=== PATIENT | female | born 2000 | race Caucasian/White ===

== ENCOUNTER 2025-02-15 10:05 | Outpatient (AMB) | payer OTHER, SELFPAY ==
--- NOTE | 2025-02-15 10:11 | MHC.OFFVIS ---
Vital Signs 02/15/25 10:20 Height 5 ft 9 in Weight 141 lb 1.533 oz BMI 20.8 BP 115/67 Blood Pressure Location Lt brachial Position Sitting Pulse 64 Intake Visit Reasons: Hepatitis C Intake Note: Angie presents in the office as a new patient for Hep C. CC: states that she got diagnosed with type 1 diabetes a month ago. She has no symptoms of Hep C but states she had poc antibodies. Allergies methimazole Allergy (Mild, Verified 02/15/25 10:21) Unknown HPI Comments Details: 25 y.o F who is here for positive HCV negative viral load . Pt reports had routine labs which showed HCV Ab positive. However based on referral sent viral load is negative. Pt herself does not have any abd pain, N,V,D. Hx of unprotected sexual intercourse. No hx of IVDU. No fam hx of liver disease or HCV that pt is aware of. Pt has hx of jaundice when she was 10 y.o which was attributed to DILI with methimazole given for graves disease. PMH: iatrogenic hyPOthyroidism, T1DM. PFSH Surgical History (Updated 02/15/25 @ 10:21 by VIRGILIO Waters) Hx of colonoscopy History of esophagogastroduodenoscopy (EGD) Family History (Updated 02/15/25 @ 10:22 by VIRGILIO Waters) Paternal Uncle Colon cancer Review of Systems Const All systems reviewed & are unremarkable except as noted in HPI and below Physical Exam Vital Signs: Last Vital Signs Pulse 64 02/15/25 10:20 BP 115/67 02/15/25 10:20 BMI result Body Mass Index 20.8 No apparent distress Nonicteric Abdomen soft, nondistended Alert and oriented x3, normal gait Assessment & Plan Assessment & Plan (1) Hepatitis C antibody detected: Code(s): R76.8 - Other specified abnormal immunological findings in serum Category: Medical Plan Unclear exposure hx possible sexually transmitted. ?? Hx of jaundice when she was 10 y.o. Based on referral this is resolved but will get labs to confirm. Will also check HBV and HIV to r/o coinfection. Plan: - Labs as below - If no active infection, PRN follow up. Orders: Orders Hepatitis A IgG Today R76.8 - Other specified abnormal immunological findings in serum Hepatitis B Core Antibody Today R76.8 - Other specified abnormal immunological findings in serum Hepatitis C Antibody Today R76.8 - Other specified abnormal immunological findings in serum Liver Panel Today R76.8 - Other specified abnormal immunological findings in serum Hepatitis B Surface Antibody Today R76.8 - Other specified abnormal immunological findings in serum Hepatitis B Surface Antigen Today R76.8 - Other specified abnormal immunological findings in serum HCV RNA QN PROG TO GENOTYPE Today R76.8 - Other specified abnormal immunological findings in serum HIV Ab/Ag Today R76.8 - Other specified abnormal immunological findings in serum Coding Level of Care Code New Pt Level 3 (88247) Diagnoses Hepatitis C antibody detected R76.8
[2025-02-15 10:20] VITALS: BP 115/67; PULSE 64; BMI 20.8
== END 2025-02-15 10:57 | disposition home or self-care (01) ==
LOC: HO.HGI 10:06
PROVIDERS: PCP Internal Medicine; Visit Provider Internal Medicine
DX: R76.8 Other specified abnormal immunological findings in serum (principal)
CPT/HCPCS: 99203

== ENCOUNTER 2025-02-15 10:05 | Outpatient (REF) | payer OTHER, SELFPAY ==
[2025-02-15 12:40] LABS: Alanine Aminotransferase 42 U/L (0-31); Albumin Level 4.2 g/dL (3.5-5.0); Alkaline Phosphatase 76 U/L (39-117); Aspartate Amino Transferase 29 U/L (5-31); Bilirubin Direct 0.1 mg/dL (0.0-0.5); Bilirubin Total 0.4 mg/dL (0.0-1.0); Total Protein 7.6 g/dL (6.5-8.0)
[2025-02-15 12:58] LABS: HBS Num1 0.65 mIU/mL (0-7.99); HBc Num1 0.17 S/CO (0.00-0.79); HBsAGNum1 0.27 S/CO (0.00-0.99); HIV AB/AG Nonreactive (Nonreactive); HIV Num 1 0.11 S/CO (0.00-0.99); Hepatitis B Core Antibody Nonreactive (Nonreactive); Hepatitis B Surface Antigen Negative (Negative); ~HepC Num1 0.17 S/CO (0.00-0.79); ~Hepatitis B Surface Antibody NONREACTIVE (Nonreactive); ~Hepatitis C Antibody Nonreactive (Nonreactive)
[2025-02-17 04:09] LABS: Hepatitis A Antibody IgG REACTIVE (Nonreactive); ~Hepatitis A Antibody IgG 5.69 S/CO (0.00-0.99)
[2025-02-17 18:07] LABS: HCV RNA PCR Qn <1.18 NOT DETECTED Log IU/mL (NOT DETECTED); HCV RNA PCR Qn <15 NOT DETECTED IU/mL (NOT DETECTED)
== END 2025-02-15 10:06 | disposition home or self-care (01) ==
LOC: HO.LAB 10:05
PROVIDERS: PCP Internal Medicine; Visit Provider Internal Medicine
DX: R76.8 Other specified abnormal immunological findings in serum (principal)
CPT/HCPCS: 36415; 80076; 86704; 86706; 86708; 86803; 87340; 87389; 87522